=== PATIENT | male | born 1995 | race Caucasian/White ===

== ENCOUNTER 2016-11-25 19:45 | Emergency (ER) | payer OTHER ==
[2016-11-25 19:50] VITALS: RESP 18
[2016-11-25] MEDS ORDERED: DEXAMETHASONE 4 MG TAB PO STA (20:04)
[2016-11-25] MEDS ORDERED: IPRATROPIUM-ALBUTEROL 3 ML NEB INHALATION STA (20:04)
--- NOTE | 2016-11-25 20:09 | ED ---
General Adult HPI - General Chief complaint: Shortness of Breath Stated complaint: SOB Time Seen by Provider: 11/25/16 19:52 Source: patient, RN notes reviewed Mode of arrival: ambulatory Limitations: no limitations - History of Present Illness Initial comments: 21-year-old male with history of asthma presenting for cough and shortness of breath. Patient states that he has had a cough productive of some yellow sputum for the past 2 months. He states over the past week he has had some worsening shortness of breath. He does not currently have any inhalers that he is using. He has not followed up with his PCP recently. He denies any fevers or chills associated. States he is having some left rib pain with coughing. He also has some swollen lymph nodes. He also states he had nausea this morning and one episode of emesis but believes this is because he was drinking alcohol last evening. He denies any other complaints at this time. - Related Data Previous Rx's Medication Instructions Recorded Albuterol Inhaler [Ventolin Hfa 2 puff INHALATION Q4HR PRN #1 11/25/16 Inhaler] inhaler Ibuprofen [Motrin] 800 mg PO Q8HR PRN #21 tab 11/25/16 predniSONE 40 mg PO DAILY #14 tab 11/25/16 Allergies Allergy/AdvReac Type Severity Reaction Status Date / Time No Known Allergies Allergy Verified 11/25/16 19:59 Review of Systems ROS Statement: Those systems with pertinent positive or pertinent negative responses have been documented in the HPI. ROS Other: All systems not noted in ROS Statement are negative. Past Medical History Past Medical History: Asthma, Hypertension History of Any Multi-Drug Resistant Organisms: None Reported Past Surgical History: No Surgical Hx Reported Past Psychological History: No Psychological Hx Reported Smoking Status: Current every day smoker Past Alcohol Use History: Occasional Past Drug Use History: None Reported General Exam - General Exam Comments Initial Comments: General: Awake and Alert. No acute distress. Does not appear acutely ill. Eyes: KAYDEN, EOM intact. No nystagmus. No scleral icterus. HENT: Atraumatic, normocephalic. Mucous membranes moist. Trachea midline. Neck: The neck is supple, there is no tenderness or JVD. Cardiovascular: Regular rate and rhythm. No murmur, rub, or gallop is appreciated. Distal pulses intact. Respiratory: Lungs are clear to auscultation bilaterally. Mild expiratory wheezes. No rales, rhonchi. No respiratory distress. Gastrointestinal: Soft, Nontender. No rebound or guarding. Non-distended. No masses or organomegaly noted. No CVA tenderness. Musculoskeletal: No tenderness. Normal ROM. No gross deformity. No strength deficits. Neurological: A&Ox3. CN II-XII grossly intact, There are no obvious motor or sensory deficits. Coordination appears grossly intact. Speech is normal. Skin: Skin is warm and dry and no rashes or lesions are noted. Soft nontender 1 cm lymph node noted left posterior auricle, soft nontender 1 cm lymph node noted right axillary. Psychiatric: Cooperative, appropriate mood & affect, normal judgment. Limitations: no limitations Course Vital Signs 11/25/16 11/25/16 19:47 20:21 Temperature 97.1 F L Pulse Rate 90 82 Respiratory 18 Rate Blood Pressure 158/96 O2 Sat by Pulse 98 Oximetry Medical Decision Making - Medical Decision Making 21-year-old male presenting for shortness of breath for the past week. On exam he has some mild wheezing. He does have a history of asthma. He is also noted to have a few swollen lymph nodes. Chest x-ray was done with no acute process. Patient is given a breathing treatment and steroids in the ED. On reevaluation he is improved with no wheezing or respiratory distress. Discussed likely viral cause of symptoms given his lymph node swelling and evidence of mild asthma exacerbation with cough. Discussed no plan for ABx as he has had chronic cough for 2 months and more likely inflammatory in nature. Discussed inhaler use and steroid therapy. Low suspicion of DVT or PE at this time patient with negative Wells and PERC negative. Discussed close follow-up with PCP. Discussed concerning signs symptoms for immediate return to the ED. Patient also states he is concerned because his brother had MRSA on his lip. Patient with no abscess or cellulitis or lesions concerning for MRSA at this time. Discussed it is highly unlikely he has MRSA bacteremia given stable vitals and no fever at this time. Pt is reassured with this. Patient is agreeable with plan discharge home. - Radiology Data Radiology results: report reviewed, image reviewed Disposition Clinical Impression: Asthma exacerbation, Cough Disposition: HOME SELF-CARE Condition: Stable Instructions: Asthma (ED), Chronic Cough (ED) Prescriptions: Albuterol Inhaler [Ventolin Hfa Inhaler] 2 puff INHALATION Q4HR PRN #1 inhaler PRN Reason: Shortness Of Breath Ibuprofen [Motrin] 800 mg PO Q8HR PRN #21 tab PRN Reason: Pain predniSONE 40 mg PO DAILY #14 tab Referrals: None,Stated [Primary Care Provider] - 1-2 days Time of Disposition: 20:49
--- NOTE | 2016-11-25 20:23 | XR ---
EXAMINATION TYPE: XR chest 2V DATE OF EXAM: 11/25/2016 8:15 PM COMPARISON: NONE HISTORY: Cough and shortness of breath TECHNIQUE: Frontal and lateral views of the chest are obtained. FINDINGS: Heart and mediastinum are normal. Lungs are clear. Diaphragm is normal. Bony thorax is int act. IMPRESSION: Normal chest
[2016-11-25 20:57] VITALS: BP 151/88; PULSE 68; TEMP 97.7
== END 2016-11-25 20:57 | disposition home or self-care (01) ==
LOC: EC 19:45
DX: J45.901 Unspecified asthma with (acute) exacerbation (principal); R07.81 Pleurodynia; F17.200 Nicotine dependence, unspecified, uncomplicated
CPT/HCPCS: 94640; 71020; 99285; J8540

== ENCOUNTER 2017-01-21 15:49 | Emergency (ER) | payer OTHER ==
[2017-01-21 16:01] VITALS: BP 157/92
[2017-01-21] MEDS ORDERED: RABIES VACCINE (PCEC) 2.5 UNIT KIT IM ONE (16:25)
[2017-01-21] MEDS ORDERED: RABIES IMMUNE GLOB 150 UNIT/ML 10 ML VIAL IM ONE ×2 (16:25→16:45)
--- NOTE | 2017-01-21 16:38 | ED ---
Animal Bite HPI - General Chief Complaint: Animal Bite Stated Complaint: bit by bat-sent by Time Seen by Provider: 01/21/17 16:19 Source: patient, RN notes reviewed Mode of arrival: ambulatory Limitations: no limitations - History of Present Illness Initial Comments: 21-year-old male presents emergency with chief complaint of a bat bite. Patient states tonight she was drinking alcohol and states that he try to grab a bat. Patient has a bite to his right hand thumb. Patient states he is some obvious for rabies vaccinations. Patient states his tetanus was updated last year. Patient offers no complaints. - Related Data Previous Rx's Medication Instructions Recorded Albuterol Inhaler [Ventolin Hfa 2 puff INHALATION Q4HR PRN #1 11/25/16 Inhaler] inhaler Ibuprofen [Motrin] 800 mg PO Q8HR PRN #21 tab 11/25/16 predniSONE 40 mg PO DAILY #14 tab 11/25/16 Allergies Allergy/AdvReac Type Severity Reaction Status Date / Time No Known Allergies Allergy Verified 11/25/16 19:59 Review of Systems ROS Statement: Those systems with pertinent positive or pertinent negative responses have been documented in the HPI. ROS Other: All systems not noted in ROS Statement are negative. Past Medical History Past Medical History: Asthma, Hypertension History of Any Multi-Drug Resistant Organisms: None Reported Past Surgical History: No Surgical Hx Reported Past Psychological History: No Psychological Hx Reported Smoking Status: Current every day smoker Past Alcohol Use History: Daily, Occasional Past Drug Use History: Marijuana General Exam Limitations: no limitations General appearance: alert, in no apparent distress Respiratory exam: Present: normal lung sounds bilaterally. Absent: respiratory distress, wheezes, rales, rhonchi, stridor Cardiovascular Exam: Present: regular rate, normal rhythm, normal heart sounds. Absent: systolic murmur, diastolic murmur, rubs, gallop, clicks Skin exam: Present: warm, dry, intact, normal color, other (Right hand thumb there is small puncture wound noted). Absent: rash Course Vital Signs 01/21/17 15:58 Temperature 97.6 F Pulse Rate 68 Respiratory 16 Rate Blood Pressure 157/92 O2 Sat by Pulse 97 Oximetry Medical Decision Making - Medical Decision Making Patient was given immunoglobulin and rabies vaccine at this time. Patient will come back on day 37 and 14 for continued rabies series. Return parameters were discussed. Disposition Clinical Impression: Bat bite of finger Disposition: HOME SELF-CARE Condition: Stable Instructions: Animal Bite (ED) Additional Instructions: Please return to the Emergency Department if symptoms worsen or any other concerns. Referrals: Mau Cross MD [Primary Care Provider] - 1-2 days Time of Disposition: 16:37
[2017-01-21] MEDS ORDERED: RABIES IMMUNE GLOB 150UNIT/ML 2 ML VIAL IM ONE (16:45)
[2017-01-21 17:27] VITALS: PULSE 80; RESP 18; TEMP 97.7
== END 2017-01-21 17:26 | disposition home or self-care (01) ==
LOC: EC 15:49
DX: S61.031A Puncture wound without foreign body of right thumb without damage to nail, initial encounter (principal); F17.200 Nicotine dependence, unspecified, uncomplicated; Z20.3 Contact with and (suspected) exposure to rabies; W55.81XA Bitten by other mammals, initial encounter
CPT/HCPCS: 90375; 90471; 90675; 96372; 99283